=== PATIENT | female | born 1970 | race Caucasian/White ===

== ENCOUNTER 2016-09-15 22:55 | Inpatient (IN) ==
[2016-09-15 23:43] LABS: Bilirubin,Urine Negative (Negative); Blood,Urine Negative (Negative); Clarity,Urine Cloudy (Clear); Color,Urine Yellow (Yellow); Glucose,Urine (UA) Normal (Normal); Ketones,Urine Negative (Negative); Leukocyte Esterase,Urine Large (Negative); Nitrite,Urine Negative (Negative); Protein,Urine Negative (Neg-Trace); Specific Gravity,Urine 1.005 (1.010-1.025); Urobilinogen,Urine Normal (Normal)
[2016-09-15 23:50] LABS: Amphetamine Screen,Urine Negative ng/mL (Cutoff=1000); Barbiturate Screen,Urine Negative ng/mL (Cutoff=200); Benzodiazepines Screen,Urine Negative ng/mL (Cutoff=200); Cannabinoid Screen,Urine Negative ng/mL (Cutoff = 50); Cocaine Screen,Urine Negative ng/mL (Cutoff= 300); Opiate Screen,Urine Negative ng/mL (Cutoff=300); Phencyclidine Screen,Urine Negative ng/mL (Cutoff=25)
[2016-09-15 23:54] LABS: RBC,Urine 0-3 per hpf (0-3)
[2016-09-15 23:55] LABS: Bacteria,Urine Few per hpf (None-Few); Squamous Epithelial Cell,Urine Many per lpf (None-Few); WBC,Urine 15-30 per hpf (0-3)
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
[2016-09-16 00:03] LABS: Basophils % 0.5 %; Eosinophils # 0.2 K/mcL (0.0-0.6); Eosinophils % 2.2 %; Hematocrit 38.2 % (35.3-44.9); Hemoglobin 12.2 g/dL (11.5-15.4); Immature Granulocytes % 0.3 % (0-4); Immature Platelets 1.5 % (1.1-6.1); Lymphocytes # 2.1 K/mcL (0.6-4.6); Lymphocytes % 27.5 %; Mean Corpuscular HGB Conc 31.9 g/dL (31.6-35.5); Mean Corpuscular Hemoglobin 25.4 pg (28.0-33.3); Mean Corpuscular Volume 79.4 fL (83.0-100.0); Mean Platelet Volume 8.9 fL (9.4-12.4); Monocytes # 0.4 K/mcL (0.0-1.3); Monocytes % 4.6 %; Platelet Count 320 K/mcL (140-400); Red Blood Count 4.81 M/mcL (3.82-4.97); Red Cell Distribution Width 14.3 % (11.5-14.5); Segmented Neutrophils % 64.9 %
[2016-09-16 00:18] LABS: Alanine Aminotransferase 8 Units/L (0-55); Albumin 3.9 g/dL (3.5-5.0); Alkaline Phosphatase 107 Units/L (38-126); Aspartate Amino Transferase 9 Units/L (5-34); BUN/Creatinine Ratio 11 (6-26); Bilirubin,Direct 0.2 mg/dL (0.0-0.5); Bilirubin,Indirect 0.3 mg/dL (0.0-1.2); Bilirubin,Total 0.5 mg/dL (0.2-1.2); Blood Urea Nitrogen 9 mg/dL (7-20); Calcium 10.7 mg/dL (8.6-10.8); Carbon Dioxide 23 mEq/L (19-29); Chloride 106 mEq/L (98-109); Glucose 102 mg/dL (70-99); Osmolality,Calculated 287 (280-300); Potassium 3.6 mEq/L (3.5-4.5); Sodium 139 mEq/L (136-145); Total Protein 7.9 g/dL (6.0-8.3); eGFR For African Americans > 60 (> 60); eGFR For Non-African Americans > 60 (> 60)
[2016-09-16 00:37] LABS: Acetaminophen < 1.0 mcg/mL (10-30); Ethanol < 10 mg/dL (0-10); Salicylate < 5.0 mg/dL (15-30)
[2016-09-16 00:57] LABS: Thyroid Stimulating Hormone 3.385 mcIU/mL (0.350-4.840)
[2016-09-16] MEDS ORDERED: *HR* LORazepam 2 MG/ML VIAL IM PRN (02:50)
[2016-09-16] MEDS ORDERED: Ibuprofen 400 MG TABLET PO PRN (02:50)
[2016-09-16] MEDS ORDERED: MOM Conc 10 ML UD.LIQ PO PRN (02:50)
[2016-09-16] MEDS ORDERED: Haloperidol Lactate 5 MG/ML VIAL IM PRN (02:50)
[2016-09-16] MEDS ORDERED: *HR* LORazepam 1 MG TABLET PO PRN (02:50)
[2016-09-16] MEDS ORDERED: Mag Hydrox/Al Hydrox/Simeth 30 ML UDC PO PRN (02:50)
[2016-09-16] MEDS ORDERED: OLANZapine 5 MG TAB.RAPDIS PO ONE (02:57)
[2016-09-16] MEDS ORDERED: *HR* LORazepam 1 MG TABLET PO ONE (02:58)
[2016-09-16] MEDS: Nicotine 21 MG PATCH.TD24 TD SCH (10:04)
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
[2016-09-16] MEDS ORDERED: Dextrose Gel 15 GM PO PRN ×2 (20:31)
[2016-09-16] MEDS: OLANZapine 5 MG TAB.RAPDIS PO SCH (21:15)
[2016-09-17] MEDS: Insulin LISPRO 300 UNITS/3 ML VIAL SQ SCH ×3 (08:05→16:37)
[2016-09-17] MEDS: Nicotine 21 MG PATCH.TD24 TD SCH (09:16)
--- NOTE | 2016-09-17 13:18 | Psychiatry Progress Note ---
Date of Encounter: 09/17/16 Time of Encounter: 11:30 Subjective Interval history: During the interview this morning, the patient tells me "I am a little better". She denies any side effects of the Zyprexa. She is still isolating in her room which tells me she is still experiencing anxiety and paranoia. She acknowledges that she is, but tells me it's less than it was. She has not had to use much insulin secondary to not eating very much on the unit. She was encouraged to eat more on the unit. She is well aware that she has diabetes and appears to have a good understanding of insulin and how to use it. "I've been diabetic since my 20's." Her accuchecks have been 111 and 121. She was encouraged to come out of her room and socialize more and attend individual and group therapy. She was more logical today, not tearful in regards to paranoia that she is being followed by "the cele". She states that she felt safe here on the unit last night. She states that the medication helped her to sleep, to be calmer and she is agreeable to continue taking the Zyprexa at night. She tells me she will try and come out of the room and do more today because she is bored but she is unsure about interacting with others. She has not talk to her sisters since she has been here and she states she will try and call her sister today. Review of Systems Psychiatric: Reports: anxiety, auditory hallucinations, visual hallucinations, irritability Objective: Exam Patient orientation: Yes Person, Yes Time, Yes Place Level of alertness: Follows commands Patient appearance: Disheveled, Malodorous Behavior: anxious Psychomotor activity: Normal Eye contact: Maintains Eye Contact Mood description: Anxious Affect description: anxious Speech pattern: Normal rate, Normal rhythm, Normal tone Speech volume: Normal Thought process: Perseveration Thought content: Yes Paranoid delusion Judgment: Limited Insight: Minimal Results - Vital Signs Vital Signs: Temp Pulse Resp BP Pulse Ox 98.6 F 127 18 96/63 98 09/17/16 08:39 09/17/16 08:39 09/17/16 08:39 09/17/16 08:39 09/15/16 22:57 - Labs Labs: Laboratory Results - last 24 hr 09/16/16 09/16/16 09/17/16 16:22 21:14 07:56 POC Glucose 80 141 H 111 H 09/17/16 11:28 POC Glucose 120 H Assessment and Plan (1) Chronic schizophrenia Current visit: Yes Status: Acute Plan: Continue hospitalization, Close observation, Suicide Precautions per unit protocol, Encourage participation in unit milieu, Group Therapy, Monitor sleep, Monitor appetite Risks, benefits, side effects, alternatives discussed w/pt: Yes (agrees to nightly dose of Zyprexa 5 mg po q HS ) Patient agreeable to treatment: Yes Consult Discharge Plan - Plan Referrals: NO,PCP [Primary Care Provider] -
[2016-09-17] MEDS: OLANZapine 5 MG TAB.RAPDIS PO SCH (20:32)
[2016-09-18] MEDS: Insulin LISPRO 300 UNITS/3 ML VIAL SQ SCH ×3 (08:11→16:49)
[2016-09-18] MEDS: Nicotine 21 MG PATCH.TD24 TD SCH (10:09)
--- NOTE | 2016-09-18 15:52 | Psychiatry Progress Note ---
Date of Encounter: 09/18/16 Time of Encounter: 15:40 Subjective Interval history: The patient was willing to see me today in follow up. She told me "I am feeling a lot better. My anxiety ain't up. I am sleeping good". She told me that she is not having any thoughts of hurting herself or anybody else. She denied auditory or visual hallucinations. She told me she is not being bothered by the man who has been following her. She denies any side effects of the Zyprexa and states that it has helped her feel much better. She states that she will continue to take it. She tells me she spoke to her sister today and that she can go back and live with her sister once she is discharged. She has been noted to be socializing on the unit getting out of her room and eating more. She is being monitored with accu-checks for her diabetes and it appears to be better controlled them when she is out of the hospital. She denies any mind control, any elevation in mood, no impulsivity. She does not feel depressed and is asking about when she might be able to go home. Review of Systems Psychiatric: Reports: anxiety Objective: Exam Patient orientation: Yes Person, Yes Time, Yes Place, Yes Circumstance Level of alertness: Alert, Follows commands Patient appearance: Disheveled (Improved) Behavior: calm, cooperative Psychomotor activity: Normal Eye contact: Fleeting Contact Mood description: Anxious (mildly) Affect description: congruent with mood Speech pattern: Normal rate, Normal rhythm, Normal tone Speech volume: Normal Thought process: Intact, Linear (more today), Goal Oriented Thought content: Yes Paranoid delusion (decreased) Judgment: Fair Insight: Partial Results - Vital Signs Vital Signs: Temp Pulse Resp BP Pulse Ox 97.7 F 83 16 78/49 98 09/18/16 08:45 09/18/16 08:45 09/18/16 08:45 09/18/16 08:45 09/15/16 22:57 - Labs Labs: Laboratory Results - last 24 hr 09/17/16 09/17/16 09/18/16 16:35 20:20 08:10 POC Glucose 144 H 163 H 135 H 09/18/16 11:18 POC Glucose 147 H Assessment and Plan (1) Chronic schizophrenia Current visit: Yes Status: Acute Plan: Continue hospitalization, Close observation, Encourage participation in unit milieu, Monitor sleep Risks, benefits, side effects, alternatives discussed w/pt: Yes (agrees to nightly dose of Zyprexa 5 mg po for now. ) Patient agreeable to treatment: Yes Consult Discharge Plan - Plan Referrals: [facility] [Outside] (You will come into the clinic on Monday , 10/04/2016 at 4:30 PM to complete paperwork only. Please bring the following with you 1) proof of household income, 2) proof of address, 3) your social security number, and 4) your insurance card. If you do not bring these items, you will not be seen. You will then see your counselor, Jessie, for the first time the next day, 10/05/2016 at 10:30 AM.) Jude Marcano, PAC [Physician Electronic Game Developer] - (The above appointment is with LUPE Weiner at [facility]. This appointment is to establish you with a primary care provider. If you have needs related to psychiatric medication and/ or Vivitrol, you will be assessed for these as well. Please arrive 15 minutes early to complete paperwork. Please bring your insurance card, photo ID and list of current medications to your first appointment.)
[2016-09-18] MEDS: OLANZapine 5 MG TAB.RAPDIS PO SCH (20:36)
[2016-09-18] MEDS ORDERED: OLANZapine 5 MG TAB.RAPDIS PO ONE (22:25)
[2016-09-19] MEDS: Nicotine 21 MG PATCH.TD24 TD SCH (08:34)
[2016-09-19] MEDS: Insulin LISPRO 300 UNITS/3 ML VIAL SQ SCH ×3 (08:35→16:47)
--- NOTE | 2016-09-19 12:36 | Psychiatry Progress Note ---
Date of Encounter: 09/19/16 Time of Encounter: 12:00 Subjective Interval history: Patient had a difficult time sleeping last night and was given an extra 5 mg of Zyprexa and slept well throughout the rest of the evening. She states that she has no adverse side effects of increased dose, but she does not think she needs it routinely. She just think she was nervous about planning for discharge. She denies any suicidal/homicidal ideation, she denies any auditory or visual hallucinations. She denies being stalked or followed any longer by "the cele". She continues to feel safe on the unit. When asked, she thinks she will be fine going home and that he will not bother her there anymore either. She is no longer talking about him tracking her on her cell phone. Her affect is much brighter, she is more engaged on the unit; out talking to other patients and staff on the floor in a logical and appropriate manner. No longer isolating in the room, eating fine. Review of Systems Psychiatric: Reports: anxiety Objective: Exam Patient orientation: Yes Person, Yes Time, Yes Place, Yes Circumstance Level of alertness: Alert, Follows commands Patient appearance: Well Groomed Behavior: calm, cooperative Psychomotor activity: Normal Eye contact: Maintains Eye Contact Mood description: Anxious (mildly) Affect description: congruent with mood Speech pattern: Normal rate, Normal rhythm, Normal tone Speech volume: Normal Thought process: Intact, Linear (more today), Goal Oriented Thought content: Yes Paranoid delusion (decreased) Judgment: Fair Insight: Partial Results - Vital Signs Vital Signs: Temp Pulse Resp BP Pulse Ox 98 F 96 18 89/62 98 09/19/16 08:52 09/19/16 08:52 09/19/16 08:52 09/19/16 08:52 09/15/16 22:57 - Labs Labs: Laboratory Results - last 24 hr 09/18/16 09/19/16 09/19/16 16:47 07:57 11:37 POC Glucose 134 H 178 H 152 H Assessment and Plan (1) Chronic schizophrenia Current visit: Yes Status: Acute Plan: Continue hospitalization, Close observation, Encourage participation in unit milieu, Monitor sleep Risks, benefits, side effects, alternatives discussed w/pt: Yes (agrees to nightly dose of Zyprexa 5 mg po for now. ) Patient agreeable to treatment: Yes Consult Discharge Plan - Plan Referrals: [facility] [Outside] (You will come into the clinic on Monday , 10/04/2016 at 4:30 PM to complete paperwork only. Please bring the following with you 1) proof of household income, 2) proof of address, 3) your social security number, and 4) your insurance card. If you do not bring these items, you will not be seen. You will then see your counselor, Jessie, for the first time the next day, 10/05/2016 at 10:30 AM.) Jude Marcano, PAC [Physician Tip Mender] - (The above appointment is with LUPE Weiner at [facility]. This appointment is to establish you with a primary care provider. If you have needs related to psychiatric medication and/ or Vivitrol, you will be assessed for these as well. Please arrive 15 minutes early to complete paperwork. Please bring your insurance card, photo ID and list of current medications to your first appointment.)
[2016-09-19] MEDS: OLANZapine 5 MG TAB.RAPDIS PO SCH (20:45)
[2016-09-19] MEDS ORDERED: OLANZapine 5 MG TAB.RAPDIS PO STA (21:17)
[2016-09-20] MEDS: Nicotine 21 MG PATCH.TD24 TD SCH (08:12)
[2016-09-20] MEDS: Insulin LISPRO 300 UNITS/3 ML VIAL SQ SCH (08:23)
--- NOTE | 2016-09-20 08:56 | Discharge Summary ---
Date of Encounter: 09/20/16 Time of Encounter: 08:15 Diagnosis - Discharge Diagnosis (1) Chronic schizophrenia Status: Acute Medications - Discharge Medications Prescriptions: OLANZapine [Zyprexa Zydis] 10 mg PO HS #30 tab.rapdis Dapsone 50 mg PO DAILY 09/16/16 [History] Insulin Glargine,Hum.rec.anlog [Basaglar Kwikpen U-100] 60 unit SQ HS 09/16/16 [ History] Insulin LISPRO [HumaLOG] 0 units SQ TIDAC vial 09/20/16 [Rx] OLANZapine [Zyprexa Zydis] 10 mg PO HS #30 tab.rapdis 09/20/16 [Rx] Simvastatin [Zocor] 20 mg PO HS tablet 09/20/16 [Rx] Allergies No Known Allergies Allergy (Verified 08/25/16 14:19) Provider Date of admission: 09/16/16 02:44 Primary care physician: PCP NO Discharging clinician: Nish Fierro Assessment and Plan - Patient/Caregiver Discharge Instructions Activity: resume usual activities as tolerated Diet: diabetic diet - Follow up Plan Follow up with: [facility] [Outside] (You will come into the clinic on Monday , 10/04/2016 at 4:30 PM to complete paperwork only. Please bring the following with you 1) proof of household income, 2) proof of address, 3) your social security number, and 4) your insurance card. If you do not bring these items, you will not be seen. You will then see your counselor, Jessie, for the first time the next day, 10/05/2016 at 10:30 AM.) Jude Marcano PAC [Physician Solar Consultant] - 09/28/16 11:00 am (The above appointment is with LUPE Weiner at [facility]. This appointment is to establish you with a primary care provider. If you have needs related to psychiatric medication and/or Vivitrol, you will be assessed for these as well. Please arrive 15 minutes early to complete paperwork. Please bring your insurance card, photo ID and list of current medications to your first appointment.) Functional capacity at discharge: independent ambulation Overall status at discharge: Stable Disposition: Home, Self-Care Hospital Course Hospital course: Ms. Jackson is a 46 year old female who was admitted to the psychiatric unit on a 72 hour hold. She had paranoia at the time of admission and was floridly psychotic. She started taking Zyprexa 5 mg PO Q HS which helped her to sleep and helped with her paranoid delusions. Her interactions and ability to programming groups on the unit greatly improved. Initially she isolated in her room was fearful of coming out. But as the medication helped her, she was able to start interacting appropriately and take care of her hygiene better. The past 2 nights she has been having problems sleeping and was given a PRN of Zyprexa 5 mg to help with sleep. That helped her to fall asleep and sleep throughout the night. She denies having any adverse side effects of the 10 mg total dose of Zyprexa and states that she would take that an outpatient basis regularly. She is not too sedated. She tells me today that she is feeling much better and ready to go home. She denies any suicidal homicidal ideation she denies any auditory or visual hallucinations. She denies any delusional paranoid thought that anybody is out to get her. She states that her mood is stable she is not feeling depressed or anxious. She has made arrangements she will be able to go live at her sister cells. She has the insulin she needs to treat her diabetes already and only needs a prescription for Zyprexa when she leaves. Patient will be discharged today with follow-ups for mental health and for medical. Time spent discussing smoking cessation with patient: 3 to 10 minutes Does patient wish to continue nicotine replacement upon disc: No - Time Spent with Patient Total time spent providing and/or coordinating discharge services: 20 min Less than 30 minutes Quality - Multiple Antipsychotics Patient discharged on 2 or more antipsychotic medications: No Procedures - Procedures Procedures: Medication Management, Crisis Stabilization, Group Therapy, Psychoeducational Therapy Mental Status Exam - Mental Status Exam Patient orientation: Yes Person, Yes Time, Yes Place, Yes Circumstance Level of alertness: Alert, Follows commands Patient appearance: Well Groomed Behavior: calm, cooperative Psychomotor activity: Normal Eye contact: Maintains Eye Contact Mood description: Euthymic/stable Affect description: congruent with mood Speech pattern: Normal rate, Normal rhythm, Normal tone Speech Volume: Normal Thought process: Intact, Linear, Goal Oriented Thought Content: Yes Intact Judgment: Fair Insight: Partial
[2016-09-20 10:11] VITALS: BP 104/65
[2016-09-20] MEDS ORDERED: OLANZapine 10 MG TAB.RAPDIS PO SCH (21:00)
== END 2016-09-20 10:50 | disposition home or self-care (01) | DRG 885 ==
LOC: EMEROO 22:55 → 1ANU 09-16 02:30
PROVIDERS: ADMIT Psychiatry & Neurology Psychiatry; ATTEND Psychiatry & Neurology Psychiatry

== ENCOUNTER 2017-09-14 17:04 | Inpatient (IN) ==
--- NOTE | 2017-09-14 18:19 | Emergency Department Note ---
Disposition Clinical Impression: Chronic schizophrenia Disposition: Still a Patient Referrals: NONE,PCP [Primary Care Provider] - Forms: ED Satisfaction Letter Psych HPI - General Chief Complaint: ED Medical Clearance Stated Complaint: Med Clearance Time Seen by Provider: 09/14/17 18:03 Source: patient Nursing Notes Reviewed: Yes Vital Signs Reviewed: Yes - History of Present Illness HPI Narrative: The patient presents with a physical security specialist and she was in handcuffs and she states she does not know why she is here except for the fact that her sister last night thought the patient was hearing voices and I did review her records does have a history of schizophrenia. According to the paperwork the patient has not been taking her psychotropic medications and has been paranoid thought processes that someone was going to come in the house and her eyelid shut and that she is seeing people in her house including a skinny man. She denies any pain in the head, neck, chest, abdomen or back. No suicidal ideation or plan. Social history: No smoking or alcohol. Lives in a home with her sister and her sister's friend and several children - Related Data Home Medications Medication Instructions Recorded Confirmed Dapsone 50 mg PO DAILY 09/16/16 09/16/16 Insulin Glargine,Hum.rec.anlog 60 unit SQ HS 09/16/16 09/16/16 [Basaglar Kwikpen U-100] Previous Rx's Medication Instructions Recorded Insulin LISPRO [HumaLOG] 0 units SQ TIDAC vial 09/20/16 OLANZapine [Zyprexa Zydis] 10 mg PO HS #30 tab.rapdis 09/20/16 Simvastatin [Zocor] 20 mg PO HS tablet 09/20/16 Allergies Allergy/AdvReac Type Severity Reaction Status Date / Time No Known Allergies Allergy Verified 08/25/16 14:19 Review of Systems: Constitutional: No fever Vision: No blurred vision ENT: No rhinorrhea Respiratory: No cough Allergic: No allergies : No blood in urine GI: No blood in stool Hematologic: No bruising Dermatologic: No skin rash Musculoskeletal: No pain in the extremities Neuro: No numbness of the extremities Past Medical History - Past Medical History Medical history: Reports: diabetes, other Surgical history: Reports: non-contributory Psychiatric history: Reports: anxiety, depression, previous psychiatric hospitalization [employer] history: Reports: bilateral tubal ligation - Social History Smoking Status: Current every day smoker Smokeless Tobacco Status: No Alcohol use: Reports: none Drug use: Reports: none Physical Exam CONSTITUTIONAL: Alert and oriented X3, well-nourished, well appearing, in no apparent distress HEAD: Normocephalic; atraumatic. EYES: The right pupil is round, no icterus NOSE: The nose is normal in appearance without rhinorrhea RESP: Normal chest excursion with respiration; breath sounds clear and equal bilaterally; no wheezes, rhonchi, or rales CARD: Regular rhythm, without murmurs, rub or gallop ABD: Non-distended; non-tender, soft,without rigidity, rebound or guarding SKIN: Normal for age and race; warm and dry; no apparent lesions - General Limitations: no limitations General appearance: alert Course Vital Signs Temperature 98.9 F 09/14/17 17:22 Pulse Rate 98 09/14/17 17:22 Respiratory Rate 18 09/14/17 17:22 Blood Pressure 143/81 09/14/17 17:22 O2 Sat by Pulse Oximetry 98 09/14/17 17:22 Temperature 98.9 F 09/14/17 17:22 Pulse Rate 98 09/14/17 17:22 Respiratory Rate 18 09/14/17 17:22 Blood Pressure 143/81 09/14/17 17:22 O2 Sat by Pulse Oximetry 98 09/14/17 17:22 Oxygen Delivery Oxygen Delivery Room Air Psych - MDM Narrative Medical decision making narrative: We are trying to figure out exactly why she was sent here from [facility] and I will note that 1A has been notified. I did write for medical clearance labs for psychiatric illness. At this point the patient is telling me she does not have any suicidal ideation. She said she is not currently having visual hallucinations. She is easily and quickly able to tell me the name of the hospital and the month and the year 1818 Care discussed with and transitioned with Dr. Dhaliwal 0716 - Lab Data Lab results reviewed: Yes I reviewed the patient's lab results. Result diagrams: 09/14/17 18:30 09/14/17 18:30 Lab Results 09/14/17 09/14/17 09/14/17 Range/Units 18:10 18:10 18:30 WBC 7.1 (4.3-11.1) K/mcL RBC 5.06 H (3.82-4.97) M/mcL Hgb 13.3 (11.5-15.4) g/dL Hct 40.9 (35.3-44.9) % MCV 80.8 L (83.0-100.0) fL MCH 26.3 L (28.0-33.3) pg MCHC 32.5 (31.6-35.5) g/dL RDW 13.7 (11.5-14.5) % Plt Count 232 (140-400) K/mcL MPV 9.8 (9.4-12.4) fL Immature Gran % 0.3 (0-4) % Seg Neutrophils % 76.0 % Lymphocytes % 19.2 % Monocytes % 3.8 % Eosinophils % 0.4 % Basophils % 0.3 % Neutrophils # 5.4 (1.6-8.9) K/mcL Lymphocytes # 1.4 (0.6-4.6) K/mcL Monocytes # 0.3 (0.0-1.3) K/mcL Eosinophils # 0.0 (0.0-0.6) K/mcL Basophils # 0.0 (0.0-0.2) K/mcL Sodium (136-145) mEq/L Potassium (3.5-5.1) mEq/L Chloride (98-107) mEq/L Carbon Dioxide (23-29) mEq/L BUN (6-20) mg/dL Creatinine (0.60-1.20) mg/dL Est GFR ( Amer) (> 60) Est GFR (Non-Af Amer) (> 60) BUN/Creatinine Ratio (6-26) Glucose (70-105) mg/dL Calculated Osmolality (280-300) Calcium (8.6-10.3) mg/dL Urine Color Yellow (Yellow) Urine Clarity Clear (Clear) Urine pH 7.0 (5.0-8.0) pH Units Ur Specific [place] 1.016 (1.010-1.025) Urine Protein Negative (Neg-Trace) mg/dL Urine Glucose (UA) Normal (Normal) mg/dL Urine Ketones 15 H (Negative) mg/dL Urine Blood Negative (Negative) Urine Nitrite Negative (Negative) Urine Bilirubin Negative (Negative) Urine Urobilinogen Normal (Normal) mg/dL Ur Leukocyte Esterase Negative (Negative) Salicylates (15.0-30.0) mg/dL Urine Opiates Screen Negative (Stbtku=146) ng/mL Acetaminophen (10-30) mcg/mL Ur Barbiturates Screen Negative (Kkdwnm=900) ng/mL Ur Phencyclidine Scrn Negative (Cutoff=25) ng/mL Ur Amphetamines Screen Negative (Rnpela=9764) ng/mL U Benzodiazepines Scrn Negative (Gsitzc=861) ng/mL Urine Cocaine Screen Negative (Cutoff= 300) ng/mL U Marijuana (THC) Screen Negative (Cutoff = 50) ng/mL Ethyl Alcohol (0-10) mg/dL 09/14/17 Range/Units 18:30 WBC (4.3-11.1) K/mcL RBC (3.82-4.97) M/mcL Hgb (11.5-15.4) g/dL Hct (35.3-44.9) % MCV (83.0-100.0) fL MCH (28.0-33.3) pg MCHC (31.6-35.5) g/dL RDW (11.5-14.5) % Plt Count (140-400) K/mcL MPV (9.4-12.4) fL Immature Gran % (0-4) % Seg Neutrophils % % Lymphocytes % % Monocytes % % Eosinophils % % Basophils % % Neutrophils # (1.6-8.9) K/mcL Lymphocytes # (0.6-4.6) K/mcL Monocytes # (0.0-1.3) K/mcL Eosinophils # (0.0-0.6) K/mcL Basophils # (0.0-0.2) K/mcL Sodium 136 (136-145) mEq/L Potassium 4.1 (3.5-5.1) mEq/L Chloride 108 H (98-107) mEq/L Carbon Dioxide 23 (23-29) mEq/L BUN 9 (6-20) mg/dL Creatinine 0.75 (0.60-1.20) mg/dL Est GFR ( Amer) > 60 (> 60) Est GFR (Non-Af Amer) > 60 (> 60) BUN/Creatinine Ratio 12 (6-26) Glucose 148 H (70-105) mg/dL Calculated Osmolality 283 (280-300) Calcium 10.9 H (8.6-10.3) mg/dL Urine Color (Yellow) Urine Clarity (Clear) Urine pH (5.0-8.0) pH Units Ur Specific [place] (1.010-1.025) Urine Protein (Neg-Trace) mg/dL Urine Glucose (UA) (Normal) mg/dL Urine Ketones (Negative) mg/dL Urine Blood (Negative) Urine Nitrite (Negative) Urine Bilirubin (Negative) Urine Urobilinogen (Normal) mg/dL Ur Leukocyte Esterase (Negative) Salicylates < 5.0 L (15.0-30.0) mg/dL Urine Opiates Screen (Etsjan=620) ng/mL Acetaminophen < 1.0 L (10-30) mcg/mL Ur Barbiturates Screen (Ibpzrx=405) ng/mL Ur Phencyclidine Scrn (Cutoff=25) ng/mL Ur Amphetamines Screen (Hfefem=2650) ng/mL U Benzodiazepines Scrn (Wsyvtw=391) ng/mL Urine Cocaine Screen (Cutoff= 300) ng/mL U Marijuana (THC) Screen (Cutoff = 50) ng/mL Ethyl Alcohol < 10 (0-10) mg/dL Psychiatric Medical Clearance - Medical Clearance Checklist Medical History: Chronic schizophrenia (Acute) Allergic reaction to drug (Inactive) Impetigo (Inactive) Uncontrolled diabetes mellitus (Inactive) Urticaria (Inactive) Urticaria (Inactive) Viral exanthem (Inactive) No Social History Section defined Current Vitals: Last Vital Signs Temp 98.9 F 09/14/17 17:22 Pulse 98 09/14/17 17:22 Resp 18 09/14/17 17:22 BP 143/81 09/14/17 17:22 Pulse Ox 98 09/14/17 17:22 Psychiatric Lab Panel: Drug Levels and Toxicity 09/14/17 09/14/17 18:10 18:30 Urine Opiates Screen Negative Acetaminophen < 1.0 L Ur Barbiturates Screen Negative Ur Phencyclidine Scrn Negative Ur Amphetamines Screen Negative U Benzodiazepines Scrn Negative Urine Cocaine Screen Negative U Marijuana (THC) Screen Negative Ethyl Alcohol < 10 Abnormal Labs: Abnormal lab results RBC 5.06 M/mcL (3.82-4.97) H 09/14/17 18:30 MCV 80.8 fL (83.0-100.0) L 09/14/17 18:30 MCH 26.3 pg (28.0-33.3) L 09/14/17 18:30 Chloride 108 mEq/L (98-107) H 09/14/17 18:30 Glucose 148 mg/dL (70-105) H 09/14/17:30 Calcium 10.9 mg/dL (8.6-10.3) H 09/14/17 18:30 Urine Ketones 15 mg/dL (Negative) H 09/14/17 18:10 Salicylates < 5.0 mg/dL (15.0-30.0) L 09/14/17: Acetaminophen < 1.0 mcg/mL (10-30) L 09/14/17 18:30 Statement of Medical Clearance: I have evaluated the patient, reviewed diagnostic information, and certify that the patient's medical condition is sufficiently stable that transfer to the psychiatric unit does not pose a significant risk of deterioration.
[2017-09-14 18:36] LABS: Bilirubin,Urine Negative (Negative); Blood,Urine Negative (Negative); Clarity,Urine Clear (Clear); Color,Urine Yellow (Yellow); Glucose,Urine (UA) Normal (Normal); Ketones,Urine 15 mg/dL (Negative); Leukocyte Esterase,Urine Negative (Negative); Nitrite,Urine Negative (Negative); Protein,Urine Negative (Neg-Trace); Specific Gravity,Urine 1.016 (1.010-1.025); Urobilinogen,Urine Normal (Normal)
[2017-09-14 18:40] LABS: Basophils % 0.3 %; Eosinophils % 0.4 %; Hematocrit 40.9 % (35.3-44.9); Hemoglobin 13.3 g/dL (11.5-15.4); Immature Granulocytes % 0.3 % (0-4); Lymphocytes # 1.4 K/mcL (0.6-4.6); Lymphocytes % 19.2 %; Mean Corpuscular HGB Conc 32.5 g/dL (31.6-35.5); Mean Corpuscular Hemoglobin 26.3 pg (28.0-33.3); Mean Corpuscular Volume 80.8 fL (83.0-100.0); Mean Platelet Volume 9.8 fL (9.4-12.4); Monocytes # 0.3 K/mcL (0.0-1.3); Monocytes % 3.8 %; Neutrophils # 5.4 K/mcL (1.6-8.9); Platelet Count 232 K/mcL (140-400); Red Blood Count 5.06 M/mcL (3.82-4.97); Red Cell Distribution Width 13.7 % (11.5-14.5)
[2017-09-14 18:42] LABS: Amphetamine Screen,Urine Negative ng/mL (Cutoff=1000); Barbiturate Screen,Urine Negative ng/mL (Cutoff=200); Benzodiazepines Screen,Urine Negative ng/mL (Cutoff=200); Cannabinoid Screen,Urine Negative ng/mL (Cutoff = 50); Cocaine Screen,Urine Negative ng/mL (Cutoff= 300); Opiate Screen,Urine Negative ng/mL (Cutoff=300); Phencyclidine Screen,Urine Negative ng/mL (Cutoff=25)
[2017-09-14 18:58] LABS: Acetaminophen < 1.0 mcg/mL (10-30); Ethanol < 10 mg/dL (0-10); Salicylate < 5.0 mg/dL (15.0-30.0)
[2017-09-14 19:09] LABS: BUN/Creatinine Ratio 12 (6-26); Blood Urea Nitrogen 9 mg/dL (6-20); Calcium 10.9 mg/dL (8.6-10.3); Carbon Dioxide 23 mEq/L (23-29); Chloride 108 mEq/L (98-107); Glucose 148 mg/dL (70-105); Osmolality,Calculated 283 (280-300); Potassium 4.1 mEq/L (3.5-5.1); Sodium 136 mEq/L (136-145); eGFR For African Americans > 60 (> 60); eGFR For Non-African Americans > 60 (> 60)
[2017-09-14] MEDS ORDERED: Haloperidol Lactate 5 MG/ML VIAL IM PRN (22:23)
[2017-09-14] MEDS ORDERED: MOM Conc 10 ML UD.LIQ PO PRN (22:23)
[2017-09-14] MEDS ORDERED: Mag Hydrox/Al Hydrox/Simeth 30 ML UDC PO PRN (22:23)
[2017-09-14] MEDS ORDERED: *HR* LORazepam 1 MG TABLET PO PRN (22:23)
[2017-09-14] MEDS ORDERED: Acetaminophen 325 MG TABLET PO PRN (22:23)
[2017-09-14] MEDS ORDERED: *HR* LORazepam 2 MG/ML VIAL IM PRN (22:23)
[2017-09-14] MEDS ORDERED: D5% in Water 1,000 ML IVC PRN (22:27)
[2017-09-14] MEDS ORDERED: *HR* Dextrose 50 % in Water (Syg) 50 ML SYRINGE IVP PRN (22:27)
[2017-09-14] MEDS ORDERED: Dextrose Gel 15 GM/37.5 ML TUBE PO PRN ×2 (22:27)
[2017-09-14] MEDS: traZODone 50 MG TABLET PO PRN (22:50)
[2017-09-14] MEDS: hydrOXYzine pamoate 25 MG CAPSULE PO PRN (22:50)
--- NOTE | 2017-09-15 02:52 | Emergency Department Note ---
START Narrative - START START: 47-year-old female received in sign out at the start of my shift pending behavioral health evaluation, reevaluation and disposition. Behavioral health evaluated the patient and recommended admission to the hospital for further care and evaluation. Patient is comfortable with this plan of action and signed in voluntarily Diagnosis: Acute psychosis, paranoid schizophrenia Condition: Improved, stable Dispo: Admit to [facility] for behavioral health evaluation Time of disposition: 2108 Patient counseled regarding diagnosis, diagnostic results, treatment plan, and prescriptions to be given. Patient understood and agreed with proposed plan.
[2017-09-15] MEDS: Insulin LISPRO 300 UNITS/3 ML VIAL SQ SCH ×4 (07:59→22:11)
[2017-09-15] MEDS: Nicotine 21 MG PATCH.TD24 TD SCH (09:01)
[2017-09-15] MEDS: hydrOXYzine pamoate 25 MG CAPSULE PO PRN (23:06)
[2017-09-15] MEDS: traZODone 50 MG TABLET PO PRN (23:06)
--- NOTE | 2017-09-16 00:30 | Psychiatry History & Physical ---
Date of Encounter: 09/15/17 Time of Encounter: 21:30 History of Present Illness Patient Stated Chief Complaint: They sent me here Medicare Admission Attestation: For traditional Medicare patients the provided hospital inpatient services are reasonable and necessary and in the case of services not specified as inpatient -only under 42 CFR 419.22 (n), that they are appropriately provided as inpatient services in accordance 42 CFR 412.3. For Critical Access Hospital the patient may reasonably be expected to be discharged or transferred to a hospital within 96 hours after admission to the Critical Access Hospital. Admitted From: Emergency Dept Plans for Post Hospital Care: Home History of Present Illness: Ms. Jackson is a 47 year old female She is known to have psychiatric disorder and was hospitalized one year ago. 9. If time she had diagnosed with schizophrenia she was prescribed Zyprexa but she did not follow-up. She was referred to [facility] by Dr. Ledezma. In the previous hospitalization the patient alleges that her sister had her brought in on a pink slip. In this case of the patient indicates that her sister went to the court and the [place] police brought her in. She denies that she has psychosis. She does report a tall thin 18-year-old with glasses but says this is a person that lives in the residence. No additional information was available. Therefore the information provided by Judge Mckinney was taken his primary fascie evidence Past Med Surg Social Fam HX - Past Medical History Medical history: diabetes, other - Past Psychiatric History Psychiatric history: Reports: previous psychiatric hospitalization Past psychiatric history details: The patient has been treated with olanzapine 10 mg daily at bedtime. She has no known allergies. She has been on insulin or going but has not taken it due to financial issues she has been on simvastatin Zocor. 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 She does acknowledge a hospitalization in [place] and the hospitalization one year ago Family psychiatric history: Yes Family Psychiatric History Details: Reports her sister has psychiatric hospitalization Family History of Suicide: None - Past Surgical History Surgical History: non-contributory - Social History Smoking Status: Current every day smoker Smokeless Tobacco Status: No Alcohol use: none Drug use: none Medications & Allergies Insulin ASPART [NovoLOG] 0 unit SQ TID 09/14/17 [History] Insulin Glargine [Lantus] 60 unit SQ BID 09/14/17 [History] 3 Allergy/AdvReac Type Severity Reaction Status Date / Time No Known Allergies Allergy Verified 08/25/16 14:19 Review of Systems Psychiatric: Reports: irritability Mental Status Exam Patient orientation: Yes Person Level of alertness: Alert Patient appearance: Appropriate, Well Groomed Behavior: calm, cooperative Psychomotor activity: Normal Eye contact: Maintains Eye Contact Mood description: Euthymic/stable Affect description: congruent with mood, full range Speech pattern: Normal rate, Normal rhythm, Normal tone Speech volume: Normal Thought process: Linear, Goal Oriented Thought content: No Suicidal ideation, No Homicidal ideation, No Overt delusions Perceptual disturbances: No Auditory hallucinations, No Visual hallucinations Attention span: Capable of Focused Attention Memory description: Grossly Intact Patient reliability: Reliable Historian Intelligence estimate: Average Judgment: Limited Insight: Partial Exam - HEENT Head exam IM: Present: normocephalic - Neurological Neurological exam IM: Present: alert, altered, no focal deficits - Respiratory Respiratory exam IM: Present: accessory muscle use - Skin Skin exam IM: Present: normal color Results - Vital Signs Vital signs: Temp Pulse Resp BP Pulse Ox 98.2 F 90 16 103/65 93 09/15/17 21:00 09/15/17 21:00 09/15/17 21:00 09/15/17 21:00 09/14/17 20:20 - Labs Labs: Laboratory Last Values WBC 7.1 K/mcL (4.3-11.1) 09/14/17 18:30 RBC 5.06 M/mcL (3.82-4.97) H 09/14/17 18:30 Hgb 13.3 g/dL (11.5-15.4) 09/14/17 18:30 Hct 40.9 % (35.3-44.9) 09/14/17 18:30 MCV 80.8 fL (83.0-100.0) L 09/14/17 18:30 MCH 26.3 pg (28.0-33.3) L 09/14/17 18:30 MCHC 32.5 g/dL (31.6-35.5) 09/14/17 18:30 RDW 13.7 % (11.5-14.5) 09/14/17 18:30 Plt Count 232 K/mcL (140-400) 09/14/17 18:30 MPV 9.8 fL (9.4-12.4) 09/14/17 18:30 Immature Gran % 0.3 % (0-4) 09/14/17 18:30 Seg Neutrophils % 76.0 % 09/14/17 18:30 Lymphocytes % 19.2 % 09/14/17 18:30 Monocytes % 3.8 % 09/14/17 18:30 Eosinophils % 0.4 % 09/14/17: Basophils % 0.3 % 09/14/17 18:30 Neutrophils # 5.4 K/mcL (1.6-8.9) 09/14/17 18:30 Lymphocytes # 1.4 K/mcL (0.6-4.6) 09/14/17: Monocytes # 0.3 K/mcL (0.0-1.3) 09/14/17:30 Eosinophils # 0.0 K/mcL (0.0-0.6) 09/14/17: Basophils # 0.0 K/mcL (0.0-0.2) 09/14/17 18:30 Sodium 136 mEq/L (136-145) 09/14/17 18:30 Potassium 4.1 mEq/L (3.5-5.1) 09/14/17 18:30 Chloride 108 mEq/L (98-107) H 09/14/17 18:30 Carbon Dioxide 23 mEq/L (23-29) 09/14/17 18:30 BUN 9 mg/dL (6-20) 09/14/17: Creatinine 0.75 mg/dL (0.60-1.20) 09/14/17 18:30 Est GFR ( Amer) > 60 (> 60) 09/14/17 18:30 Est GFR (Non-Af Amer) > 60 (> 60) 09/14/17 18:30 BUN/Creatinine Ratio 12 (6-26) 09/14/17 18:30 Glucose 148 mg/dL (70-105) H 09/14/17 18:30 POC Glucose 131 (58-89) H 09/15/17 21:01 Calculated Osmolality 283 (280-300) 09/14/17 18: Calcium 10.9 mg/dL (8.6-10.3) H 09/14/17 18:30 Urine Color Yellow (Yellow) 09/14/17 18:10 Urine Clarity Clear (Clear) 09/14/17 18:10 Urine pH 7.0 pH Units (5.0-8.0) 09/14/17 18:10 Ur Specific [place] 1.016 (1.010-1.025) 09/14/17 18:10 Urine Protein Negative mg/dL (Neg-Trace) 09/14/17:10 Urine Glucose (UA) Normal mg/dL (Normal) 09/14/17 18:10 Urine Ketones 15 mg/dL (Negative) H 09/14/17 18:10 Urine Blood Negative (Negative) 09/14/17 18:10 Urine Nitrite Negative (Negative) 09/14/17:10 Urine Bilirubin Negative (Negative) 09/14/17: Urine Urobilinogen Normal mg/dL (Normal) 09/14/17 18:10 Ur Leukocyte Esterase Negative (Negative) 09/14/17:10 Salicylates < 5.0 mg/dL (15.0-30.0) L 09/14/17 18:30 Urine Opiates Screen Negative ng/mL (Fbospq=390) 09/14/17 18:10 Acetaminophen < 1.0 mcg/mL (10-30) L 09/14/17 18:30 Ur Barbiturates Screen Negative ng/mL (Lfprdh=843) 09/14/17 18:10 Ur Phencyclidine Scrn Negative ng/mL (Cutoff=25) 09/14/17 18:10 Ur Amphetamines Screen Negative ng/mL (Mahfri=6975) 09/14/17 18:10 U Benzodiazepines Scrn Negative ng/mL (Yjtxwa=728) 09/14/17 18:10 Urine Cocaine Screen Negative ng/mL (Cutoff= 300) 09/14/17 18:10 U Marijuana (THC) Screen Negative ng/mL (Cutoff = 50) 09/14/17 18:10 Ethyl Alcohol < 10 mg/dL (0-10) 09/14/17 18:30 Assessment and Plan (1) Chronic schizophrenia Current visit: Yes Status: Acute Plan: Close observation Additional Plan: This patient was brought in on a judicial order. This is not a pink slip but the patient did sign a voluntary admission form. She denies any problems with hallucinations or delusions and feels that she is being persecuted by family members. Her plan is to get her things and her money and to take a bus to [facility] so that she can meet up with her boyfriend. She plans to move away as she feels she is being exploited in her current environment. We now have no other evidence to the contrary other than judicial order Risks, benefits, side effects, alternatives discussed w/pt: Yes Patient agreeable to treatment: Yes Plans for Post Hospital Care: Transfer Other
[2017-09-16] MEDS: Nicotine 21 MG PATCH.TD24 TD SCH (08:20)
[2017-09-16] MEDS: Insulin LISPRO 300 UNITS/3 ML VIAL SQ SCH ×4 (08:23→23:13)
--- NOTE | 2017-09-16 14:23 | Psychiatry Progress Note ---
Date of Encounter: 09/16/17 Time of Encounter: 14:15 Subjective Interval history: Patient has a plan. She spoke to her aunt and her ride in [place]. They are worried about her. Her boyfriend in [place] Tr[place]. She plans ot slepak with hismHe lives in [place], [place]. he kai need a police escort to go back to her apartment. She ahs been taking Trazodone for her depression. She did not naomy the Zyprexa. She has diabetes mellitus and her sugar is running low. Delfina and her GF has threated her. The 18 yearo old kid did not let her watch TV. She dneies problems with her imagition. Marilin Hame Pandey is her neice. Review of Systems Psychiatric: Reports: irritability Objective: Exam Patient orientation: Yes Person, Yes Time, Yes Place Level of alertness: Alert Patient appearance: Appropriate, Well Groomed Behavior: calm, cooperative Psychomotor activity: Normal Eye contact: Maintains Eye Contact Mood description: Euthymic/stable Affect description: congruent with mood, full range Speech pattern: Normal rate, Normal rhythm, Normal tone Speech volume: Normal Thought process: Linear, Goal Oriented Thought content: No Suicidal ideation, No Homicidal ideation, No Overt delusions Perceptual disturbances: No Auditory hallucinations, No Visual hallucinations Judgment: Fair Insight: Partial Results - Vital Signs Vital Signs: Temp Pulse Resp BP Pulse Ox 97.3 F L 98 16 103/65 93 09/16/17 09:26 09/16/17 09:26 09/16/17 09:26 09/15/17 21:00 09/14/17 20:20 - Drug Levels and Toxicology Drug Levels and Toxicology: no drug of abuse, no alcohol - Labs Labs: Laboratory Results - last 24 hr 09/15/17 09/15/17 09/16/17 16:43 21:01 08:04 POC Glucose 129 H 131 H 143 H 09/16/17 11:23 POC Glucose 145 H Assessment and Plan (1) Chronic schizophrenia Current visit: Yes Status: Acute Plan: Continue hospitalization, Close observation Additional Plan: This patient has come in on a voluntary admission. She is agreed to cooperate with the evaluation. So far we have not seen any evidence of hallucinations or delusions. She has been able to start back on her medicines. She is making plans to relocate to [place]. This may require some additional planning resources. She denies trouble with her imagination and denies overt paranoia and she denies first rank schneiderian symptoms and she agrees to follow-up at least with counseling in [place] Risks, benefits, side effects, alternatives discussed w/pt: Yes Patient agreeable to treatment: Yes (2) Diabetes mellitus Current visit: Yes Status: Acute Plan: Continue hospitalization Risks, benefits, side effects, alternatives discussed w/pt: Yes Patient agreeable to treatment: Yes Qualifiers: Diabetes mellitus type: type 2 Diabetes mellitus complication status: without complication Diabetes mellitus custodial insulin use: unspecified custodial insulin use status Qualified Code(s): E11.9 - Type 2 diabetes mellitus without complications (3) Glaucoma (increased eye pressure) Current visit: Yes Status: Chronic Plan: Close observation Qualifiers: Glaucoma type: secondary to eye inflammation Laterality: right Glaucoma stage: mild stage Qualified Code(s): 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
[2017-09-16] MEDS: traZODone 50 MG TABLET PO PRN (22:01)
[2017-09-16] MEDS: hydrOXYzine pamoate 25 MG CAPSULE PO PRN (22:01)
[2017-09-17] MEDS: Insulin LISPRO 300 UNITS/3 ML VIAL SQ SCH ×4 (08:16→21:00)
[2017-09-17] MEDS: Nicotine 21 MG PATCH.TD24 TD SCH (08:17)
--- NOTE | 2017-09-17 16:43 | Psychiatry Progress Note ---
Date of Encounter: 09/17/17 Time of Encounter: 16:30 Subjective Interval history: The patient would like to get some clothes so that she can go home and collect her belongings especially her purse. She would like to go to [place]. She reports no hallucinations no delusions. She has been socially interactive and she has no negative symptoms of schizophrenia and she has no thought disorder. I asked specific questions for shared paranoid disorder. Also known as cristela álvarez. She says that Yamila and Delfina Lialda time but she says that the hallucination of the 18-year-old boy that is purported in the report is in fact real person's name is Kendrick carmona 16 he has his niece's boyfriend he attends [employer] and he is in [place] he has not been mean or menacing towards the patient meanwhile Delfina and her girlfriend Yamila have been mean to the patient denied her access to outpatient treatment to 900 every to get her medicines. The patient has done well without antipsychotics in this period of time. Nonetheless residential issues and health care issues must be addressed her blood sugars been stable she recognizes the need for this. Objective: Exam Patient orientation: Yes Person, Yes Time, Yes Place Level of alertness: Alert Patient appearance: Appropriate, Well Groomed Behavior: calm, cooperative Psychomotor activity: Normal Eye contact: Maintains Eye Contact Mood description: Euthymic/stable Affect description: congruent with mood, full range Speech pattern: Normal rate, Normal rhythm, Normal tone Speech volume: Normal Thought process: Linear, Goal Oriented Thought content: No Suicidal ideation, No Homicidal ideation, No Overt delusions Perceptual disturbances: No Auditory hallucinations, No Visual hallucinations Judgment: Fair Insight: Partial Results - Vital Signs Vital Signs: Temp Pulse Resp BP Pulse Ox 96.9 F L 114 16 86/61 93 09/17/17 08:14 09/17/17 08:14 09/17/17 08:14 09/17/17 08:14 09/14/17 20:20 - Labs Labs: Laboratory Results - last 24 hr 09/16/17 09/17/17 09/17/17 20:34 08:11 11:38 POC Glucose 151 H 153 H 153 H 09/17/17 16:12 POC Glucose 138 H Assessment and Plan (1) Chronic schizophrenia Current visit: Yes Status: Acute Plan: Continue hospitalization Additional Plan: There is no need for antipsychotics. I find no evidence of acute psychosis. The patient may be in remission. Nonetheless mental health follow-up is recommended. The patient may need residential and other resources before she is discharged but she is a voluntary patient and can be discharged to her own preferred residents Risks, benefits, side effects, alternatives discussed w/pt: Yes Patient agreeable to treatment: Yes (2) Diabetes mellitus Current visit: Yes Status: Acute Plan: Continue hospitalization, Monitor appetite Risks, benefits, side effects , alternatives discussed w/pt: Yes Patient agreeable to treatment: Yes Qualifiers: Diabetes mellitus type: type 2 Diabetes mellitus complication status: without complication Diabetes mellitus long term care social worker insulin use: unspecified long term care social worker insulin use status Qualified Code(s): E11.9 - Type 2 diabetes mellitus without complications (3) Glaucoma (increased eye pressure) Current visit: Yes Status: Chronic Qualifiers: Glaucoma type: secondary to eye inflammation Laterality: right Glaucoma stage: mild stage Qualified Code(s): 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
[2017-09-17] MEDS: traZODone 50 MG TABLET PO PRN (20:52)
[2017-09-17] MEDS: hydrOXYzine pamoate 25 MG CAPSULE PO PRN (20:52)
[2017-09-18] MEDS: Insulin LISPRO 300 UNITS/3 ML VIAL SQ SCH ×4 (08:25→21:34)
[2017-09-18] MEDS: Nicotine 21 MG PATCH.TD24 TD SCH (09:09)
--- NOTE | 2017-09-18 13:48 | Psychiatry Progress Note ---
Date of Encounter: 09/18/17 Time of Encounter: 13:30 Subjective Interval history: Patient was seen today and he explained to me what happened between her and her sister. She states that she did not threaten to hurt herself or anybody else. She stated that she was not psychotic, but that her sister was angry and "made stuff up with the police and that is why they brought me in here". She states that there has been ongoing turbulence with her sister and she plans on returning to [place], living with her boyfriend and her stepmother. She states that she is making arrangements to get a bus ride to go back to [place]. She denies any ongoing mental health issues. She states that she is trying to contact her sister now to gather things up and get her clothing packed up and removed from the house in a friendly manner and to get on with her life. She states her mood is stable, although frustrated with her sister. She denies any auditory or visual hallucinations. She denies any paranoid delusions. Patient is working with the social studies teacher to arrange bus trips/ schedule, waiting on transportation, housing and follow-up in [place] with a potential discharge tomorrow. Review of Systems Psychiatric: Reports: irritability Objective: Exam Patient orientation: Yes Person, Yes Time, Yes Place, Yes Circumstance Level of alertness: Alert Patient appearance: Appropriate, Well Groomed Additional observations: No left eye Behavior: nervous Psychomotor activity: Normal Eye contact: Maintains Eye Contact Mood description: Euthymic/stable Affect description: congruent with mood Speech pattern: Normal rate, Normal rhythm, Normal tone Speech volume: Normal Thought process: Intact, Linear, Goal Oriented Thought content: Yes Intact Judgment: Fair Insight: Full Results - Vital Signs Vital Signs: Temp Pulse Resp BP Pulse Ox 96.6 F L 98 18 95/56 93 09/18/17 08:52 09/18/17 08:52 09/18/17 08:52 09/18/17 08:52 09/14/17 20:20 - Labs Labs: Laboratory Results - last 24 hr 09/17/17 09/17/17 09/18/17 16:12 20:28 07:56 POC Glucose 138 H 120 H 129 H 09/18/17 11:34 POC Glucose 139 H Assessment and Plan (1) Chronic schizophrenia Current visit: Yes Status: Acute Plan: Continue hospitalization, Close observation, Group Therapy, Monitor sleep Risks, benefits, side effects, alternatives discussed w/pt: Yes Patient agreeable to treatment: Yes Consult Discharge Plan - Plan Additional Instructions: The 13/03 mental health crisis line for [place], [place] is [phone]. Referrals: [facility] [Other] - 09/21/17 10:30 am (The above appointment is with counselor, Evin Edmonds, to establish you as a client. Please bring your photo ID, proof of insurance if you have it, and proof of income to this appointment. After you have been seen by the counselor, you will be provided with an appointment to see the psychiatrist, as well as a return appointment for counseling.)
[2017-09-18] MEDS: traZODone 50 MG TABLET PO PRN (21:08)
[2017-09-18] MEDS: hydrOXYzine pamoate 25 MG CAPSULE PO PRN (21:08)
[2017-09-19] MEDS: Nicotine 21 MG PATCH.TD24 TD SCH (08:25)
[2017-09-19] MEDS: Insulin LISPRO 300 UNITS/3 ML VIAL SQ SCH (08:28)
[2017-09-19 10:12] VITALS: BP 116/74
--- NOTE | 2017-09-19 10:47 | Discharge Summary ---
Date of Encounter: 09/19/17 Time of Encounter: 09:50 Diagnosis - Discharge Diagnosis (1) Chronic schizophrenia Status: Acute Medications - Discharge Medications Insulin ASPART [NovoLOG] 0 unit SQ TID 09/14/17 [History] Insulin Glargine [Lantus] 60 unit SQ BID 09/14/17 [History] Insulin LISPRO [HumaLOG] 0 units SQ HS vial 09/19/17 [Rx] Insulin LISPRO [HumaLOG] 0 units SQ TIDAC vial 09/19/17 [Rx] 3 Allergy/AdvReac Type Severity Reaction Status Date / Time No Known Allergies Allergy Verified 08/25/16 14:19 Provider Date of admission: 09/14/17 21:15 Primary care physician: PCP NONE Assessment and Plan - Patient/Caregiver Discharge Instructions Activity: resume usual activities as tolerated Diet: diabetic diet Additional Instructions: The 13/03 mental health crisis line for [place], [place] is [phone]. - Follow up Plan Follow up with: [facility] [Other] - 09/21/17 10:30 am (The above appointment is with counselor, Evin Edmonds, to establish you as a client. Please bring your photo ID, proof of insurance if you have it, and proof of income to this appointment. After you have been seen by the counselor, you will be provided with an appointment to see the psychiatrist, as well as a return appointment for counseling.) Functional capacity at discharge: independent ambulation Overall status at discharge: Stable Disposition: Home, Self-Care Hospital Course Hospital course: Ms. Jackson is a 47 year old female who was admitted after her sister called the machine marker's department had her brought in to the ED stating she was psychotic. Patient explained the situation and conflict she had been having with her sister. She denied any auditory or visual hallucinations. She denied any paranoia or delusional thought. After evaluation she was not noted to have any psychotic or delusional thought. She was linear logical. Her mood was stable. She explained that she been having conflict with her sister and that when her sister got mad at her, she did things like this to get back at her and get her out of the house. Patient had been making plans to move to [place] with her boyfriend and get out of her sister's house. Patient denied suicidal homicidal ideation and never showed any signs of self-interest behavior or thought on the unit. She adapted well to the unit. She attended group sporadically. She was on no psychotropic medications. She remains stable throughout her hospital stay. She slept appropriately, was eating fine and behaved appropriately on the unit. Plans were made to assist the patient with transportation and to get her belongings from her sister's house. Patient is going to take a [employer] bus to her boyfriend and stepmother's house in [place] and get moved out of the sisters house. Arrangements were made for her to have follow-up in [place] when she got there. On the day of discharge patient stated she was doing fine. She had no complaints and was happy for the assistance. There are no grounds to hold her on a 72 hour hold as she was not an imminent risk to herself, anybody else are gravely disabled. Patient was discharged with outpatient follow-up in place as needed. Time spent discussing smoking cessation with patient: 3 to 10 minutes Does patient wish to continue nicotine replacement upon disc: No - Time Spent with Patient Total time spent providing and/or coordinating discharge services: 15 min Less than 30 minutes Quality - Multiple Antipsychotics Patient discharged on 2 or more antipsychotic medications: No Procedures - Procedures Procedures: Medication Management, Supportive Therapy, Psychoeducational Therapy Mental Status Exam - Mental Status Exam Patient orientation: Yes Person, Yes Time, Yes Place, Yes Circumstance Level of alertness: Alert Patient appearance: Appropriate, Well Groomed, Well-nourished Behavior: calm Psychomotor activity: Normal Eye contact: Maintains Eye Contact Mood description: Euthymic/stable Affect description: congruent with mood Speech pattern: Normal rate, Normal rhythm, Normal tone Speech Volume: Normal Thought process: Intact, Linear, Goal Oriented Thought Content: Yes Intact Judgment: Fair Insight: Partial
== END 2017-09-19 11:20 | disposition home or self-care (01) | DRG 885 ==
LOC: EMEROO 17:04 → SUATTDRO 21:15 → 1ANU 21:15
PROVIDERS: ADMIT Psychiatry & Neurology Forensic Psychiatry; ATTEND Psychiatry & Neurology Psychiatry